=== PATIENT | female | born 1965 | race African-American/Black ===

== ENCOUNTER 2017-05-05 08:10 | Day surgery (SDC) | payer MEDICAID ==
[~2017-05-05] VITALS: Ht 157.5 cm; Wt 74.4 kg
[~2017-05-05 08:10] MED LIST: BALANCED SALT IRRIG SOLN COMB1 500ML OP ONE
[2017-05-05] MEDS ORDERED: LACTATED RINGERS 1,000 ML IV SCH (08:30)
[2017-05-05] MEDS ORDERED: PHENYLEPHRINE HCL 10% OPHTH DROPS 5ML RIGHTEYE ONE (09:15)
[2017-05-05] MEDS ORDERED: TROPICAMIDE 1% OPHTH DROPS 15ML RIGHTEYE ONE (09:15)
[2017-05-05] MEDS ORDERED: CYCLOPENTOLATE HCL 1% OPHTH DROPS 2ML RIGHTEYE ONE (09:15)
[2017-05-05] MEDS ORDERED: FERR-71 PO (09:37)
[2017-05-05] MEDS ORDERED: LISI-604 PO (09:38)
[2017-05-05] MEDS ORDERED: OMEP20CA10 PO (09:39)
[2017-05-05] MEDS ORDERED: ALBU18HF2 INH (09:40)
[2017-05-05] MEDS ORDERED: FLOV44 IH (09:42)
[2017-05-05] MEDS ORDERED: MOME13HF INH (09:42)
[2017-05-05] MEDS ORDERED: HYALURONATE SODIUM 14 MG/ML 0.85ML SYRINGE IO ONE (11:54)
[2017-05-05] MEDS ORDERED: FENTANYL CITRATE/PF 50MCG/ML 2ML VIAL ONE (12:23)
[2017-05-05] MEDS ORDERED: MIDAZOLAM HCL 2 MG/2 ML VIAL ONE (12:23)
[2017-05-05] MEDS ORDERED: ONDANSETRON HCL 4MG/2ML VIAL IV PRN (12:30)
[2017-05-05] MEDS ORDERED: ERYTHROMYCIN BASE 0.5% OPHTH OINT 3.5GM RIGHTEYE NR (13:00)
[2017-05-05] MEDS ORDERED: BALANCED SALT IRRIG SOLN 15ML ONE (14:34)
[2017-05-05] MEDS ORDERED: TETRACAINE 0.5% OPHTH DROPS 4ML ONE (14:34)
[2017-05-05] MEDS ORDERED: BUPIVACAINE HCL/PF 0.75% (7.5MG/ML) 10ML ONE (14:34)
[2017-05-05] MEDS ORDERED: LIDOCAINE HCL/PF 2% 20 MG/ML 10ML VIAL ONE (14:34)
[2017-05-05] MEDS ORDERED: LIDOCAINE HCL 2%/EPINEPHRINE 1:100,000 20 ML VIAL INFIL ONE (14:34)
[2017-05-05] MEDS ORDERED: CIPROFLOXACIN 0.3% OPHTH SOLN 2.5ML ONE (14:34)
[2017-05-05] MEDS ORDERED: PREDNISOLONE ACETATE 1% OPHTH DROPS 1ML ONE (14:34)
== END 2017-05-05 14:00 | disposition home or self-care (01) ==
LOC: OR 08:10
PROVIDERS: ATTEND Ophthalmology
DX: H25.89 Other age-related cataract (principal); J45.909 Unspecified asthma, uncomplicated; I10 Essential (primary) hypertension; K21.9 Gastro-esophageal reflux disease without esophagitis; F41.9 Anxiety disorder, unspecified; M19.90 Unspecified osteoarthritis, unspecified site; Z87.01 Personal history of pneumonia (recurrent); Z88.2 Allergy status to sulfonamides; Z79.899 Other long term (current) drug therapy; Z98.890 Other specified postprocedural states
CPT/HCPCS: 66984; J2250; J3010; J3490; J7120; V2632

== ENCOUNTER 2021-09-15 19:45 | Inpatient (IN) | payer MEDICAID, OTHER ==
[~2021-09-15] VITALS: Ht 157.5 cm; Wt 70.3 kg
[~2021-09-15 19:45] MED LIST changes: +ALBU18HF2 INH; -BALANCED SALT IRRIG SOLN COMB1 500ML OP ONE; +FERR-71 PO; +FLOV44 IH; +LISI20TA31 PO; +MOME13HF INH; +OMEP20CA14 PO
[2021-09-15 21:35] LABS: BASOPHILS % 0.6 % (0.0-2.0); EOSINOPHILS % 0.6 % (0.0-5.0); HEMATOCRIT. 34.8 % (36.0-48.0); HEMOGLOBIN. 11.7 g/dL (12.0-16.0); LYMPHOCYTES % 13.6 % (20.0-50.0); MEAN CORPUSCULAR HEMOGLOBIN 29.5 pg (28.0-32.0); MEAN CORPUSCULAR VOLUME 87.8 fL (81.0-99.0); MEAN PLATELET VOLUME 7.7 fl (7.4-10.4); MONOCYTES % 6.5 % (2.0-8.0); NEUTROPHILS % 78.7 % (40.0-76.0); PLATELET 373 x1000/uL (130-400); RED BLOOD CELL COUNT 3.96 mill/uL (4.2-5.4); RED CELL DISTRIBUTION WIDTH 13.5 % (11.6-14.6)
[2021-09-15 21:43] LABS: CHLORIDE 104 mEq/L (98-107)
[2021-09-16 00:02] LABS: CLARITY URINE CLEAR (CLEAR); COLOR URINE YELLOW (YELLOW); KETONES URINE 2+ (NEGATIVE); LEUKOCYTE ESTERASE URINE 2+ (NEGATIVE); NITRITE URINE POSITIVE (NEGATIVE); OCCULT BLOOD URINE NEGATIVE (NEGATIVE); PROTEIN URINE 1+ (NEGATIVE); SPECIFIC GRAVITY URINE 1.022 (1.005-1.030); UROBILINOGEN URINE 0.2 E.U./dL (0.2-1.0)
[2021-09-16] MEDS ORDERED: CEFTRIAXONE 1 G PREMIX 50 ML IV NR (00:15)
[2021-09-16] MEDS ORDERED: ONDANSETRON HCL 4MG/2ML INJ IV PRN (10:15)
[2021-09-16] MEDS ORDERED: ACETAMINOPHEN 325MG TABLET PO PRN (10:15)
[2021-09-16 16:37] VITALS: BP 114/76
[2021-09-16] MEDS: CEFTRIAXONE 1,000 MG in DEXTROSE 5% WATER 50 ML IV SCH (20:09)
[2021-09-17] VITALS: BP 144/73
[2021-09-17 04:00] VITALS: BP 140/79
[2021-09-17 08:00] VITALS: BP 121/59
[2021-09-17 13:24] LABS: *BENZODIAZEPINES SCREEN URINE NEGATIVE (NEGATIVE); *COCAINE SCREEN URINE NEGATIVE (NEGATIVE)
[2021-09-17 13:25] LABS: *AMPHETAMINES SCREEN URINE NEGATIVE (NEGATIVE); CANNABINOID URINE SCREEN NEGATIVE (NEGATIVE); METHADONE URINE SCREEN NEGATIVE (NEGATIVE); OPIATES URINE SCREEN NEGATIVE (NEGATIVE); PHENCYCLIDINE URINE SCREEN NEGATIVE (NEGATIVE)
[2021-09-17 13:26] LABS: *BARBITURATES SCREEN URINE NEGATIVE (NEGATIVE)
[2021-09-17] MEDS ORDERED: LEVO500T89 MT ×2 (13:27)
[2021-09-17 16:00] VITALS: BP 150/55
[2021-09-17] MEDS ORDERED: GADOTERATE MEGLUMINE 5 MMOL/10 ML VIAL IV ONE (18:48)
[2021-09-17 20:00] VITALS: BP 124/75
[2021-09-17] MEDS: CEFTRIAXONE 1,000 MG in DEXTROSE 5% WATER 50 ML IV SCH (20:16)
[2021-09-18] VITALS (21 sets, daily range): BP systolic 90–164; BP diastolic 41–126
[2021-09-18] MEDS ORDERED: LEVETIRACETAM 500MG PREMIX 100 ML IV SCH (12:15)
[2021-09-18] MEDS: DEXAMETHASONE 4MG/ML 1ML VIAL IV SCH ×3 (12:36→23:33)
[2021-09-18] MEDS ORDERED: GENTAMICIN SULF 40MG/ML 2ML VIAL ONE (12:41)
[2021-09-18] MEDS ORDERED: THROMBIN (BOVINE) 5000 UNITS/VIAL TOP ONE (12:41)
[2021-09-18] MEDS ORDERED: LACTATED RINGERS 4,000 ML IV ONE (12:41)
[2021-09-18] MEDS ORDERED: LIDOCAINE HCL/EPINEPHRINE 1%-EPI 1:100,000 50 ML VIAL INFIL ONE (12:41)
[2021-09-18] MEDS ORDERED: MORPHINE SULFATE 4 MG/ML CPJ (NOT FOR IM USE) IV PRN (13:00)
[2021-09-18] MEDS ORDERED: CEFAZOLIN SODIUM 1000MG/VIAL IV SCH (14:00)
[2021-09-18] MEDS ORDERED: MANNITOL 12.5G (25%) VIAL 50ML IV NR (14:00)
[2021-09-18] MEDS ORDERED: SUCCINYLCHOLINE CHLORIDE 200MG/10ML IV ONE (14:12)
[2021-09-18] MEDS ORDERED: IOHEXOL-300 100 ML BOTTLE ONE (14:26)
[2021-09-18] MEDS ORDERED: MANNITOL 20% 500 ML IV ONE (14:37)
[2021-09-18] MEDS ORDERED: PHENYTOIN SODIUM 250MG/5ML VIAL IV ONE (14:37)
[2021-09-18] MEDS ORDERED: PROPOFOL 10MG/ML 100ML 100 ML IV PRN (14:45)
[2021-09-18] MEDS ORDERED: IPRATROPIUM/ALBUTEROL 0.5-3(2.5)MG/3ML NEB HHN PRN (14:45)
[2021-09-18] MEDS ORDERED: PROPOFOL 200MG/20ML VIAL IV ONE ×2 (14:58→16:24)
[2021-09-18] MEDS ORDERED: CEFAZOLIN SODIUM 1000MG/VIAL ONE ×2 (14:59→15:10)
[2021-09-18] MEDS ORDERED: MIDAZOLAM HCL 2 MG/2 ML VIAL ONE (15:19)
[2021-09-18] MEDS ORDERED: FENTANYL CITRATE/PF 50MCG/ML 2ML VIAL ONE (15:19)
[2021-09-18] MEDS ORDERED: LABETALOL 5MG/ML SYR 20 MG/4 ML SYRINGE IV PRN (16:00)
[2021-09-18] MEDS ORDERED: MEPERIDINE HCL/PF 25MG/ML CPJ IV PRN (16:00)
[2021-09-18] MEDS ORDERED: ONDANSETRON HCL 4MG/2ML INJ IV PRN (16:00)
[2021-09-18] MEDS ORDERED: HYDROMORPHONE HCL/PF 2MG/ML CPJ IV PRN (16:00)
[2021-09-18] MEDS ORDERED: GLYCOPYRROLATE 0.2 MG/ML 2ML VIAL ONE ×2 (16:35→16:42)
[2021-09-18] MEDS ORDERED: NEOSTIGMINE METHYLSULFATE 1MG/ML 10 ML VIAL ONE (16:35)
[2021-09-18] MEDS ORDERED: LEVETIRACETAM 500MG PREMIX 200 ML IV ONE (16:40)
[2021-09-18] MEDS ORDERED: MORPHINE SULFATE 2 MG/ML CPJ (NOT FOR IM USE) IV PRN (17:49)
[2021-09-18] MEDS ORDERED: MORPHINE SULFATE 2 MG/ML CPJ (NOT FOR IM USE) IV ONE (17:55)
[2021-09-18] MEDS: NICARDIPINE 100 MG in SODIUM CHLORIDE 0.9% 60 ML IV PRN (18:05)
[2021-09-18 18:11] LABS: BG BASE EXCESS -2.5 mmol/L (-2.0-2.0); BG CARBOXYHEMOGLOBIN 0.2 % (0.5-1.5); BG DEOXYHEMOGLOBIN 0.3 % (0.0-5.0); BG FRACTION INSPIRED OXYGEN 100; BG HCO3 ACT 21.7 mmol/L (22.0-26.0); BG METHEMOGLOBIN 0.2 % (0.0-1.5); BG OXYGEN SATURATION 99.7 % (92.0-98.5); BG OXYHEMOGLOBIN 99.3 % (94.0-97.0); BG PCO2 35.2 mmHg (35.0-45.0); BG PH 7.407 (7.350-7.450); BG PO2 537.8 mmHg (75.0-100.0); BG SAMPLE SITE ALINE; BG TOTAL HEMOGLOBIN 11.8 g/dL (12.0-18.0); BG VENT MODE VENT - AC
[2021-09-18] MEDS ORDERED: HYDRALAZINE 20MG/ML VIAL IV PRN (18:30)
[2021-09-18] MEDS: CEFTRIAXONE 1,000 MG in DEXTROSE 5% WATER 50 ML IV SCH (21:46)
[2021-09-18] MEDS: CEFAZOLIN 1000MG PREMIX 50 ML IV SCH (22:00)
[2021-09-18] MEDS: LEVETIRACETAM 500MG PREMIX 100 ML IV SCH (23:45)
[2021-09-19] VITALS (66 sets, daily range): BP systolic 88–155; BP diastolic 51–124
[2021-09-19 00:32] LABS: PROTHROMBIN TIME 10.9 sec (9.6-11.0)
[2021-09-19] MEDS: DEXT 5%/LACTATED RINGERS 1,000 ML IV SCH ×2 (03:44→20:10)
[2021-09-19 05:51] LABS: HEMATOCRIT. 31.7 % (36.0-48.0); HEMOGLOBIN. 10.5 g/dL (12.0-16.0); MEAN CORPUSCULAR HEMOGLOBIN 29.3 pg (28.0-32.0); MEAN CORPUSCULAR VOLUME 88.2 fL (81.0-99.0); MEAN PLATELET VOLUME 8.9 fl (7.4-10.4); PLATELET 358 x1000/uL (130-400); RED BLOOD CELL COUNT 3.59 mill/uL (4.2-5.4); RED CELL DISTRIBUTION WIDTH 13.7 % (11.6-14.6)
[2021-09-19] MEDS: DEXAMETHASONE 4MG/ML 1ML VIAL IV SCH ×3 (05:55→18:08)
[2021-09-19] MEDS: CEFAZOLIN 1000MG PREMIX 50 ML IV SCH (05:55)
[2021-09-19 06:22] LABS: CHLORIDE 106 mEq/L (98-107)
[2021-09-19] MEDS: LEVETIRACETAM 500MG PREMIX 100 ML IV SCH ×2 (08:07→20:51)
[2021-09-19] MEDS ORDERED: LACTULOSE 20G/30ML UDC PO NR (08:45)
[2021-09-19] MEDS: DOCUSATE SODIUM 250MG CAPSULE PO SCH (09:00)
[2021-09-19 09:01] LABS: BG BASE EXCESS -1.8 mmol/L (-2.0-2.0); BG CARBOXYHEMOGLOBIN 0.3 % (0.5-1.5); BG DEOXYHEMOGLOBIN 3.2 % (0.0-5.0); BG FRACTION INSPIRED OXYGEN 21; BG HCO3 ACT 21.6 mmol/L (22.0-26.0); BG METHEMOGLOBIN 0.3 % (0.0-1.5); BG OXYGEN SATURATION 96.8 % (92.0-98.5); BG OXYHEMOGLOBIN 96.2 % (94.0-97.0); BG PCO2 31.9 mmHg (35.0-45.0); BG PH 7.448 (7.350-7.450); BG PO2 88.1 mmHg (75.0-100.0); BG SAMPLE SITE ALINE; BG TOTAL HEMOGLOBIN 10.8 g/dL (12.0-18.0); BG VENT MODE ROOM AIR
[2021-09-19 10:32] LABS: PLATELET ESTIMATE NORMAL
[2021-09-19] MEDS ORDERED: GADOTERATE MEGLUMINE 5 MMOL/10 ML VIAL IV ONE (11:18)
[2021-09-19] MEDS: CEFTRIAXONE 1,000 MG in DEXTROSE 5% WATER 50 ML IV SCH (22:01)
[2021-09-20] VITALS (82 sets, daily range): BP systolic 86–168; BP diastolic 46–276
[2021-09-20] MEDS: DEXAMETHASONE 4MG/ML 1ML VIAL IV SCH ×5 (00:04→23:29)
[2021-09-20 05:56] LABS: HEMATOCRIT. 31.2 % (36.0-48.0); HEMOGLOBIN. 10.4 g/dL (12.0-16.0); MEAN CORPUSCULAR HEMOGLOBIN 29.6 pg (28.0-32.0); MEAN CORPUSCULAR VOLUME 88.8 fL (81.0-99.0); MEAN PLATELET VOLUME 8.5 fl (7.4-10.4); PLATELET 322 x1000/uL (130-400); RED BLOOD CELL COUNT 3.52 mill/uL (4.2-5.4); RED CELL DISTRIBUTION WIDTH 13.4 % (11.6-14.6)
[2021-09-20 06:02] LABS: CHLORIDE 103 mEq/L (98-107)
[2021-09-20 09:27] LABS: PLATELET ESTIMATE NORMAL
[2021-09-20] MEDS: DOCUSATE SODIUM 250MG CAPSULE PO SCH (09:39)
[2021-09-20] MEDS: LEVETIRACETAM 500MG PREMIX 100 ML IV SCH ×2 (09:39→20:45)
[2021-09-20] MEDS: DEXT 5%/LACTATED RINGERS 1,000 ML IV SCH (11:35)
[2021-09-20] MEDS: CEFTRIAXONE 1,000 MG in DEXTROSE 5% WATER 50 ML IV SCH (20:45)
[2021-09-21] VITALS (91 sets, daily range): BP systolic 126–164; BP diastolic 30–112
[2021-09-21] MEDS: NICARDIPINE 100 MG in SODIUM CHLORIDE 0.9% 60 ML IV PRN (02:48)
[2021-09-21 05:06] LABS: HEMATOCRIT. 31.2 % (36.0-48.0); HEMOGLOBIN. 10.7 g/dL (12.0-16.0); LYMPHOCYTES % 8.5 % (20.0-50.0); MEAN CORPUSCULAR HEMOGLOBIN 29.8 pg (28.0-32.0); MEAN CORPUSCULAR VOLUME 87.4 fL (81.0-99.0); MEAN PLATELET VOLUME 7.7 fl (7.4-10.4); MONOCYTES % 2.8 % (2.0-8.0); NEUTROPHILS % 88.7 % (40.0-76.0); PLATELET 333 x1000/uL (130-400); RED BLOOD CELL COUNT 3.57 mill/uL (4.2-5.4); RED CELL DISTRIBUTION WIDTH 13.5 % (11.6-14.6)
[2021-09-21] MEDS: DEXT 5%/LACTATED RINGERS 1,000 ML IV SCH ×2 (05:14→19:11)
[2021-09-21] MEDS: DEXAMETHASONE 4MG/ML 1ML VIAL IV SCH ×2 (05:14→17:13)
[2021-09-21 05:19] LABS: CHLORIDE 101 mEq/L (98-107)
[2021-09-21] MEDS ORDERED: NALOXONE HCL 0.4MG/ML VIAL IV PRN (07:15)
[2021-09-21] MEDS: DOCUSATE SODIUM 250MG CAPSULE PO SCH (08:55)
[2021-09-21] MEDS: LEVETIRACETAM 500MG PREMIX 100 ML IV SCH ×2 (08:56→21:13)
[2021-09-21] MEDS: AMLODIPINE 10MG TABLET PO SCH (08:56)
[2021-09-21] MEDS ORDERED: MORPHINE SULFATE 4 MG/ML CPJ (NOT FOR IM USE) IV PRN (09:52)
[2021-09-21] MEDS: LOSARTAN POTASSIUM 50 MG TABLET PO SCH (12:19)
[2021-09-21] MEDS: CEFTRIAXONE 1,000 MG in DEXTROSE 5% WATER 50 ML IV SCH (21:44)
[2021-09-22] VITALS (79 sets, daily range): BP systolic 46–171; BP diastolic 24–129
[2021-09-22] MEDS: LOSARTAN POTASSIUM 50 MG TABLET PO SCH ×2 (08:23→20:53)
[2021-09-22] MEDS: DEXAMETHASONE 4MG/ML 1ML VIAL IV SCH ×2 (08:23→17:34)
[2021-09-22] MEDS: DOCUSATE SODIUM 250MG CAPSULE PO SCH (08:24)
[2021-09-22] MEDS: AMLODIPINE 10MG TABLET PO SCH (08:24)
[2021-09-22] MEDS: LEVETIRACETAM 500MG PREMIX 100 ML IV SCH ×2 (08:24→20:53)
[2021-09-22] MEDS: DEXT 5%/LACTATED RINGERS 1,000 ML IV SCH (15:15)
[2021-09-22] MEDS: NICARDIPINE 100 MG in SODIUM CHLORIDE 0.9% 60 ML IV PRN (15:25)
[2021-09-22] MEDS: HYDRALAZINE HCL 50MG TABLET PO SCH (20:53)
[2021-09-23] VITALS (39 sets, daily range): BP systolic 118–165; BP diastolic 27–112
[2021-09-23] MEDS: DEXT 5%/LACTATED RINGERS 1,000 ML IV SCH (08:08)
[2021-09-23] MEDS: LOSARTAN POTASSIUM 50 MG TABLET PO SCH (08:36)
[2021-09-23] MEDS: DEXAMETHASONE 4MG/ML 1ML VIAL IV SCH (08:36)
[2021-09-23] MEDS: LEVETIRACETAM 500MG PREMIX 100 ML IV SCH (08:37)
[2021-09-23] MEDS: DOCUSATE SODIUM 250MG CAPSULE PO SCH (08:37)
[2021-09-23] MEDS: AMLODIPINE 10MG TABLET PO SCH (08:37)
[2021-09-23] MEDS: HYDRALAZINE HCL 50MG TABLET PO SCH (08:37)
[2021-09-23] MEDS ORDERED: KEPP500 MT (13:14)
[2021-09-23] MEDS ORDERED: HYDR-4135 PO (13:15)
[2021-09-23] MEDS ORDERED: AMLO10TA80 PO (13:15)
[2021-09-23] MEDS ORDERED: LOSA50TA3 PO (13:15)
== END 2021-09-23 14:40 | disposition home health service (06) | DRG 21 ==
LOC: ER 19:45 → MICUSO 09-16 00:09 → 6EST 09-16 15:34 → CVICU 09-17 23:07 → 3WST 09-17 23:13 → MICUNO 09-18 20:51 → 6EST 09-23 09:30
PROVIDERS: ADMIT Internal Medicine; ATTEND Internal Medicine
PROC: 00B10ZZ Excision of Cerebral Meninges, Open Approach (ICD-10-PCS; principal; 2021-09-18)
PROC: 00U207Z Supplement Dura Mater with Autologous Tissue Substitute, Open Approach (ICD-10-PCS; 2021-09-18)
PROC: 0NB10ZZ Excision of Frontal Bone, Open Approach (ICD-10-PCS; 2021-09-18)
PROC: 0NB00ZZ Excision of Skull, Open Approach (ICD-10-PCS; 2021-09-18)
PROC: 0NR007Z Replacement of Skull with Autologous Tissue Substitute, Open Approach (ICD-10-PCS; 2021-09-18)
DX: D32.9 Benign neoplasm of meninges, unspecified (principal); G93.41 Metabolic encephalopathy; N30.00 Acute cystitis without hematuria; D49.6 Neoplasm of unspecified behavior of brain; G81.91 Hemiplegia, unspecified affecting right dominant side; D64.9 Anemia, unspecified; B96.20 Unspecified Escherichia coli [E. coli] as the cause of diseases classified elsewhere; E78.00 Pure hypercholesterolemia, unspecified; Z20.822 Contact with and (suspected) exposure to COVID-19; I10 Essential (primary) hypertension; J45.909 Unspecified asthma, uncomplicated; R00.1 Bradycardia, unspecified; Z91.013 Allergy to seafood; Z79.899 Other long term (current) drug therapy; Z85.841 Personal history of malignant neoplasm of brain
CPT/HCPCS: 36415; 36600; 70553; 71045; 71260; 74177; 80048; 80053; 80305; 81003; 82375; 82805; 82962; 83880; 84478; 84484; 85025; 87077; 87186; 87426; 88305; 88307; 93005; 93970; 94003; 97162; 97166; 97530; 97535; 99285; A6261; A9577; C1713; J0330; J0690; J0696; J1100; J1165; J1580; J1953; J2150; J2250; J2270; J2405; J2704; J2710; J3010; J3490; J7050; J7060; J7120; J7121; Q9967; A4315

== ENCOUNTER 2022-09-22 15:50 | Emergency (ER) | payer MEDICAID, OTHER ==
[~2022-09-22] VITALS: Ht 160 cm; Wt 60.0 kg
[~2022-09-22 15:50] MED LIST changes: +AMLO10TA80 PO; +HYDR-4135 PO; +KEPP500 MT; -LISI20TA31 PO; +LOSA50TA3 PO; -MOME13HF INH; +MOME13HF11 INH
[2022-09-22 18:00] LABS: BASOPHILS % 2.1 % (0.0-2.0); EOSINOPHILS % 1.9 % (0.0-5.0); HEMATOCRIT. 29.2 % (36.0-48.0); LYMPHOCYTES % 25.4 % (20.0-50.0); MEAN CORPUSCULAR HEMOGLOBIN 32.2 pg (28.0-32.0); MEAN CORPUSCULAR VOLUME 93.9 fL (81.0-99.0); MEAN PLATELET VOLUME 7.1 fl (7.4-10.4); MONOCYTES % 13.3 % (2.0-8.0); NEUTROPHILS % 57.3 % (40.0-76.0); PLATELET 673 x1000/uL (130-400); RED CELL DISTRIBUTION WIDTH 16.8 % (11.6-14.6)
[2022-09-22 18:07] LABS: CHLORIDE 105 mEq/L (98-107)
[2022-09-22 18:10] LABS: INR 0.9
[2022-09-22] MEDS ORDERED: ACET-2708 MT (19:08)
[2022-09-22 19:43] VITALS: BP 131/71
== END 2022-09-22 19:46 | disposition home or self-care (01) ==
LOC: ER 15:50
DX: D64.9 Anemia, unspecified (principal); D72.819 Decreased white blood cell count, unspecified; E78.00 Pure hypercholesterolemia, unspecified; I10 Essential (primary) hypertension; Z98.890 Other specified postprocedural states; Z79.899 Other long term (current) drug therapy
CPT/HCPCS: 36415; 80053; 82962; 85025; 93005; 99285